=== PATIENT | female | born 1985 | race Caucasian/White ===

== ENCOUNTER 2018-12-16 10:57 | Emergency (ER) | payer SELFPAY ==
[~2018-12-16] VITALS: Ht 162.6 cm; Wt 74.8 kg
[~2018-12-16 10:57] MED LIST: ACIDOPHILUS1 EAC3 PO; NEURONTIN100 MG PO; PROMETHAZINE-D118 ML PO; RANITIDINE HCL150 M1 PO; REMERON15 MG; SEROQUEL25 MG PO; ZITHROMAX250 MG PO
[2018-12-16 11:16] VITALS: BP 124/60
== END 2018-12-16 11:18 | disposition home or self-care (01) ==
LOC: ER 10:57
DX: M79.642 Pain in left hand (principal); L03.114 Cellulitis of left upper limb; L81.8 Other specified disorders of pigmentation; F41.9 Anxiety disorder, unspecified; F32.9 Major depressive disorder, single episode, unspecified
CPT/HCPCS: 99282

== ENCOUNTER 2020-08-10 02:21 | Emergency (ER) | payer SELFPAY ==
[~2020-08-10] VITALS: Ht 160 cm; Wt 59.0 kg
== END 2020-08-10 03:26 | disposition left against medical advice (07) ==
LOC: ER 03:15
DX: M79.672 Pain in left foot (principal); M79.671 Pain in right foot; F41.9 Anxiety disorder, unspecified

== ENCOUNTER 2020-10-08 06:58 | Emergency (ER) | payer SELFPAY ==
[~2020-10-08] VITALS: Ht 160 cm; Wt 59.0 kg
[2020-10-08] MEDS ORDERED: PENICILLIN V P500 MG PO (07:09)
== END 2020-10-08 07:18 | disposition home or self-care (01) ==
LOC: ER 07:13
DX: K02.9 Dental caries, unspecified (principal)
CPT/HCPCS: 99282

== ENCOUNTER 2024-02-29 14:19 | Emergency (ER) | payer OTHER ==
[~2024-02-29] VITALS: Ht 165.1 cm; Wt 95.3 kg
[~2024-02-29 14:19] MED LIST changes: +PENICILLIN V P500 MG PO
[2024-02-29 14:53] VITALS: TEMP 98.2
[2024-02-29 15:00] VITALS: PULSE 82; RESP 18
[2024-02-29 15:33] LABS: BASOPHILS # (AUTO) 0.1 (0.0-0.1); BASOPHILS % 0.7 % (0.0-1.0); EOSINOPHILS # (AUTO) 0.3 (0.0-0.4); EOSINOPHILS % 2.1 % (0.0-6.0); HEMATOCRIT 48.6 % (34.2-44.1); HEMOGLOBIN 15.1 g/dL (12.0-16.0); LYMPHOCYTES # (AUTO) 2.8 (1.0-3.2); LYMPHOCYTES % 23.9 % (18.0-39.1); MEAN CORPUSCULAR HEMOGLOBIN 27.8 pg (28-32); MEAN CORPUSCULAR HGB CONC 31.1 g/dL (31-35); MEAN CORPUSCULAR VOLUME 89.5 fL (81-99); MONOCYTES # (AUTO) 0.6 (0.2-0.8); MONOCYTES % 5.1 % (4.4-11.3); NEUTROPHILS % 67.7 % (38.7-80.0); PLATELET COUNT 512 x10e3/uL (140-360); RED BLOOD COUNT 5.43 x10e6/uL (3.6-5.1); RED CELL DISTRIBUTION WIDTH 13.9 % (11.7-14.4); WHITE BLOOD COUNT 11.87 x10e3/uL (4.8-10.8)
[2024-02-29] MEDS: SODIUM CHLORIDE 0.9% 1000ML 1,000 ML IV SCH (15:44)
[2024-02-29 15:45] LABS: ANION GAP 16.8 mmol/L (8-16); CALCIUM 10.7 mg/dL (8.4-10.2); POTASSIUM 3.8 mmol/L (3.5-5.1)
[2024-02-29 15:57] LABS: BILIRUBIN,URINE NEGATIVE (NEGATIVE); CLARITY,URINE SL CLOUDY (CLEAR); COLOR,URINE YELLOW (YELLOW); GLUCOSE, URINE NEGATIVE (NEGATIVE); KETONES,URINE NEGATIVE (NEGATIVE); LEUKOCYTE ESTERASE ,URINE TRACE (NEGATIVE); NITRITE,URINE NEGATIVE (NEGATIVE); PH,URINE 7 (5 - 7); PROTEIN,URINE DIPSTICK NEGATIVE (NEGATIVE); URINE UROBILINOGEN 0.2 mg/dL (0.2 - 1)
[2024-02-29 16:07] LABS: BACTERIA,URINE FEW /HPF; EPITHELIAL CELLS,URINE MODERATE /LPF; WBC,URINE (MAN) 0-5 /HPF (0-5)
[2024-02-29 16:08] LABS: AMORPHOUS SEDIMENT,URINE MODERATE (FEW)
[2024-02-29 17:21] VITALS: BP 122/79; PULSE 68; RESP 18; TEMP 97.2; O2SAT 100
== END 2024-02-29 17:25 | disposition home or self-care (01) ==
LOC: ER 15:37
DX: R06.02 Shortness of breath (principal); R53.83 Other fatigue; R53.1 Weakness; F32.A Depression, unspecified; F41.9 Anxiety disorder, unspecified; Z87.19 Personal history of other diseases of the digestive system; F17.210 Nicotine dependence, cigarettes, uncomplicated
CPT/HCPCS: 36415; 71045; 80048; 81001; 84702; 85025; 93005; 99284